=== PATIENT | female | born 1980 | race Caucasian/White ===

== ENCOUNTER 2017-01-03 05:29 | Day surgery (SDC) | payer BC ==
[~2017-01-03] VITALS: Ht 160 cm; Wt 118.0 kg
[~2017-01-03 05:29] MED LIST: LO LOESTRIN FE1 EACH PO; NOHOMEMEDS
[2017-01-03 05:50] VITALS: BP 120/68
[2017-01-03 09:44] VITALS: BP 127/88
[2017-01-03 10:45] VITALS: BP 128/90
== END 2017-01-03 11:00 | disposition home or self-care (01) ==
LOC: SDC 05:29
DX: D06.9 Carcinoma in situ of cervix, unspecified (principal); F17.210 Nicotine dependence, cigarettes, uncomplicated
CPT/HCPCS: 88305; 88307; J0330; J1100; J1885; J2250; J2405; J3010